=== PATIENT | female | born 1940 | race Caucasian/White ===

== ENCOUNTER → 2024-11-16 09:15 | Outpatient (REF) | payer MEDICARE, OTHER, SELFPAY | LOC: RAD 09:15 | PROVIDERS: ATTENDING PHYSICIAN Surgery Vascular Surgery; FAMILY PHYSICIAN Internal Medicine | DX: I65.22 Occlusion and stenosis of left carotid artery (principal) | CPT/HCPCS: 70496; 70498; Q9967 ==

== ENCOUNTER 2024-12-08 17:13 | Inpatient (IN) | payer MEDICARE, OTHER, SELFPAY ==
[2024-12-08 10:47] VITALS: BP 169/97
--- NOTE | 2024-12-08 10:53 | ED.CVA ---
ED Provider Triage
<Laina Leblanc PA-C - Last Filed: 12/08/24 10:55>
-
Patient seen by provider in Triage?: Seen in Triage
84-year-old female with a history of carotid stenosis scheduled for carotid endarterectomy by Dr. Yu next week presents for TIA-like symptoms yesterday for 15 minutes where she had numbness in her right hand with associated weakness and can pick
anything up. It fully resolved. This morning she spoke with someone who works with Dr. Yu who told her to come to the emergency department. Yesterday during this episode she did have a headache. She is not having a headache now. Patient has no
neurologic symptoms currently. She is on Plavix.
A medical screening examination has been initiated by a qualified medical provider. Based on the assessment performed at this time, it has been determined that an emergent medical condition may exist and the patient has been informed that further
medical evaluation and possible additional diagnostic testing may be needed.
HPI: This is a medical evaluation conducted in person to initiate diagnostic evaluation and provide initial therapeutics. Please see further documentation by the treating clinician.
GENERAL: Alert , in no apparent distress
ENT: No visible abnormalities
LUNGS: No acute respiratory distress
NEUROLOGICAL: Alert and oriented, cranial nerves intact, visual orozco intact, strength intact upper extremities briefly
SKIN: Skin intact. No visible changes.
MUSCULOSKELETAL: Moving extremities normally
PSYCH: Normal and appropriate interaction.
84-year-old female with a history of known carotid stenosis presents for TIA symptoms yesterday. They fully resolved today. She is scheduled for surgery next week. She is not having any significant neck pain. Will start with screening labs and a
Noncon head CT
History of Present Illness
<Laina Leblanc PA-C - Last Filed: 12/08/24 10:55>
General
Chief Complaint: CVA/TIA Symptoms
Time Seen by Provider: 12/08/24 15:06
<Moncia Negron DO - Last Filed: 12/08/24 20:26>
Onset of Stroke Symptoms
Onset of symptoms known: Yes
Date of onset of symptoms: 12/07/24
History of Present Illness
History of Present Illness:
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 Patient reports around 9 PM yesterday she had cramping and contracture of her right hand, lasted about 15 minutes
and is since gone away. Does still note some tingling sensation to the right hand. Reports similar symptoms to the left hand in the past, about 6 months ago at which time she was diagnosed with a stroke. Notes that she has had 3 strokes in the
past. She is due to have a carotid endarterectomy on the left with vascular surgery next week. She denies chest pain or difficulty breathing. She denies weakness to her extremities presently. Denies visual changes. Denies additional acute
medical complaints
Phy Exam
<Monica Negron DO - Last Filed: 12/08/24 20:26>
Physical Exam
Physical Exam:
General: Well-appearing, no clinical signs of dehydration, nontoxic and in no acute distress
HEENT: protecting airway
Neck: appears supple
CV: Normal heart rate, regular rhythm
Resp: No accessory muscle use, no increased work of breathing, lungs clear to auscultation bilaterally
Abd: no distension
Extremities: No deformities, no swelling
Neuro: alert, no focal neurologic deficit
: deferred
Rectal: deferred
Psych: Normal affect
Skin: Intact
Scores
<Monica Negron DO - Last Filed: 12/08/24 20:26>
NIH Stroke Score
Level of Consciousness: 0 - Alert
LOC Questions: 0-Answers both correctly
LOC Commands: 0-Performs both correctly
Best Horizontal Gaze: 0-Normal
Visual Orozco: 0=Normal, no visual loss
Facial Palsy: 0=Normal, symmetrical
Motor - Right Arm: 0=No drift 10 seconds
Motor - Left Arm: 0=No drift 10 seconds
Motor - Right Le-No drift 5 seconds
Motor - Left Le-No drift 5 seconds
Limb Ataxia: 0-Absent
Sensation: 0-Normal
Best Language: 0-No aphasia
Dysarthria: 0-Normal
Extinction and Inattention: 0-No abnormality
Total Score:: 0
Course
<Laina Leblanc PA-C - Last Filed: 12/08/24 10:55>
Orders/Labs/Results
Orders:
Orders
12/08/24 10:51
Electrocardiogram (*1) Urgent
Reason for Study: TIA/Stroke
CT Head W/o Iv Contrast Urgent
Comment:
Reason For Exam: right hand numbness yesterday for 15 mintues
12/08/24 10:52
EKG- Treatment ONCE
12/08/24 11:00
Complete Blood Count/With Diff Urgent
Comprehensive Metabolic Panel Urgent
12/08/24 14:58
CT Head & Neck Angio W/wo IV Urgent
Comment:
Reason For Exam: carotid stenosis, possible occlusion
12/08/24 16:30
Admit/Transfer Patient As Directed
Co-Sign Provider:
Level of Care: Inpatient admission
Assign to:: Telemetry
Physician / Group: Syd Raman
Diagnosis: CVA/TIA symptoms, carotid stenosis
Reason for Telemetry: CVA/TIA
Date to Stop Telemetry: 12/11/24
Time to Stop Telemetry: 11:00
Reason for Hospitalization: CVA/TIA symptoms, carotid stenosis
Expected length of stay greater than two midnights?: Yes
ELOS- Estimated Length of Stay in days: 3
I certify the patient meets the requirements for IP care: Yes
12/08/24 16:34
PRN Pain Medication Management As Directed
May give lesser potent ordered pain med per pt: Yes
preference::
Protocol:: Medication orders for pain may be administered in a
manner that supports deferring to patient preference
when the pt is:
- Requesting an ordered lesser potent pain medication.
Least to most potent pain medications are defined
as: acetaminophen < NSAID < tramadol < opioids
(morphine, oxycodone, hydromorphone).
- Requesting a lesser dose of the same medication IF
ORDERED.
- Requesting a less intrusive route of administration
if both routes are prescribed by the provider (PO <
IV).
12/08/24 16:35
Code Status As Directed
Resuscitation Status: Full Code
12/08/24 18:32
Acetaminophen [Tylenol] 650 mg PO Q4HPRN PRN
12/08/24 18:32
Case Management Consult ONCE
Case Management Consult: Discharge Planning
Comment: stroke/tia
DIETARY CONSULT Routine
Reason for Consult: stroke/TIA
NEUROLOGY CONSULT Urgent
Consulting Provider: Miguel Grayson
Was physician already notified: Yes
Helicopter Technician Urgent
Vascular Surgery Consult Routine
Consulting Provider: Jasen Ramirez III
Was physician already notified: Yes
Urinalysis Routine
Activity As Directed
Activity Level: Ambulate
NIH Stroke Scale As Directed
Directions: Per protocol
Comment: every shift and with any change in condition or mental status
Neurological Checks As Directed
Frequency: q4h
Additional Instructions:: q4h x 24h upon admission to the floor, then qshift & with any change in condition
and mental status
Pneumatic Compression Sleeves As Directed
Type: Knee high
Vital Signs As Directed
Frequency: Per unit guidelines
Ot Eval And Treat Routine
Pt Eval And Treat Routine
Activity Level: Ambulate
Speech Therapy Eval & Treat Routine
DX Deep Vein Thrombosis Video Routine
12/09/24 06:00
Type+Screen IN AM
NPO
Allow oral meds: Yes
Allow clear liquids: No
NPO with Ice Chips: No
Cardiovascular Evaluation IN AM
Erythrocyte Sed Rate IN AM
Glycohemoglobin (HgbA1c) IN AM
PTT IN AM
Prothrombin Time IN AM
Troponin I IN AM
CeFAZolin 2 GRAM [Ancef] 2 grams in 10 ml IV PRE PROCEDURE
Chlorhexidine Oral Rinse 0.12% [Peridex 0.12% Oral Rinse] 15 ml PO ONCE ONE
Mupirocin [Bactroban 2% Ointment] See Dose Instructions NASAL ONCE ONE
12/09/24 06:23
OR/Surgery Prep As Directed
Type of Prep: Clip surgical area, 2% CHG wipe pt
12/09/24 08:00
Atorvastatin [Lipitor] 80 mg PO DAILY
Cholecalciferol (Vitamin D3) [VITAMIN D3 (cholecalciferol)] 25 mcg PO DAILY
Clopidogrel Bisulfate [Plavix] 75 mg PO DAILY
Famotidine [Pepcid] 20 mg PO DAILY
Multivitamin [Theragran] 1 tablet PO DAILY
12/11/24 11:00
DC Protocol for Telemetry ONCE
Abnormal Lab Results
12/08/24
11:00
MCHC 31.2 L g/dL
(33.0-37.0)
MPV 10.9 H fL
(7.4-10.4)
Absolute Monos (auto) 1.2 H 10^3/uL
(0.1-0.6)
Monocytes % 11.3 H %
(1.7-9.3)
Carbon Dioxide 31 H mmol/L
(22-30)
BUN 25 H mg/dl
(7-17)
Creatinine 1.1 H mg/dL
(0.6-1.0)
Alkaline Phosphatase 146 H U/L
(38-126)
12/08/24 11:00
12/08/24 11:00
Vital Signs
Initial and Last Documented VS:
Initial Vital Signs
Temp Pulse Resp BP Pulse Ox
98.2 F 93 16 169/97 98
12/08/24 10:47 12/08/24 10:47 12/08/24 10:47 12/08/24 10:47 12/08/24 10:47
Last Documented Vital Signs
Temp Pulse Resp BP Pulse Ox
97.7 F 79 20 186/82 98
12/08/24 18:50 12/08/24 18:50 12/08/24 18:50 12/08/24 18:50 12/08/24 18:50
<Monica Negron DO - Last Filed: 12/08/24 20:26>
Orders/Labs/Results
Orders:
Orders
12/08/24 10:51
Electrocardiogram (*1) Urgent
Reason for Study: TIA/Stroke
CT Head W/o Iv Contrast Urgent
Comment:
Reason For Exam: right hand numbness yesterday for 15 mintues
12/08/24 10:52
EKG- Treatment ONCE
12/08/24 11:00
Complete Blood Count/With Diff Urgent
Comprehensive Metabolic Panel Urgent
12/08/24 14:58
CT Head & Neck Angio W/wo IV Urgent
Comment:
Reason For Exam: carotid stenosis, possible occlusion
12/08/24 16:30
Admit/Transfer Patient As Directed
Co-Sign Provider:
Level of Care: Inpatient admission
Assign to:: Telemetry
Physician / Group: Syd Raman
Diagnosis: CVA/TIA symptoms, carotid stenosis
Reason for Telemetry: CVA/TIA
Date to Stop Telemetry: 12/11/24
Time to Stop Telemetry: 11:00
Reason for Hospitalization: CVA/TIA symptoms, carotid stenosis
Expected length of stay greater than two midnights?: Yes
ELOS- Estimated Length of Stay in days: 3
I certify the patient meets the requirements for IP care: Yes
12/08/24 16:34
PRN Pain Medication Management As Directed
May give lesser potent ordered pain med per pt: Yes
preference::
Protocol:: Medication orders for pain may be administered in a
manner that supports deferring to patient preference
when the pt is:
- Requesting an ordered lesser potent pain medication.
Least to most potent pain medications are defined
as: acetaminophen < NSAID < tramadol < opioids
(morphine, oxycodone, hydromorphone).
- Requesting a lesser dose of the same medication IF
ORDERED.
- Requesting a less intrusive route of administration
if both routes are prescribed by the provider (PO <
IV).
12/08/24 16:35
Code Status As Directed
Resuscitation Status: Full Code
12/08/24 18:32
Acetaminophen [Tylenol] 650 mg PO Q4HPRN PRN
12/08/24 18:32
Case Management Consult ONCE
Case Management Consult: Discharge Planning
Comment: stroke/tia
DIETARY CONSULT Routine
Reason for Consult: stroke/TIA
NEUROLOGY CONSULT Urgent
Consulting Provider: Miguel Grayson
Was physician already notified: Yes
Helicopter Technician Urgent
Vascular Surgery Consult Routine
Consulting Provider: Jasen Ramirez III
Was physician already notified: Yes
Urinalysis Routine
Activity As Directed
Activity Level: Ambulate
NIH Stroke Scale As Directed
Directions: Per protocol
Comment: every shift and with any change in condition or mental status
Neurological Checks As Directed
Frequency: q4h
Additional Instructions:: q4h x 24h upon admission to the floor, then qshift & with any change in condition
and mental status
Pneumatic Compression Sleeves As Directed
Type: Knee high
Vital Signs As Directed
Frequency: Per unit guidelines
Ot Eval And Treat Routine
Pt Eval And Treat Routine
Activity Level: Ambulate
Speech Therapy Eval & Treat Routine
DX Deep Vein Thrombosis Video Routine
12/09/24 06:00
Type+Screen IN AM
NPO
Allow oral meds: Yes
Allow clear liquids: No
NPO with Ice Chips: No
Cardiovascular Evaluation IN AM
Erythrocyte Sed Rate IN AM
Glycohemoglobin (HgbA1c) IN AM
PTT IN AM
Prothrombin Time IN AM
Troponin I IN AM
CeFAZolin 2 GRAM [Ancef] 2 grams in 10 ml IV PRE PROCEDURE
Chlorhexidine Oral Rinse 0.12% [Peridex 0.12% Oral Rinse] 15 ml PO ONCE ONE
Mupirocin [Bactroban 2% Ointment] See Dose Instructions NASAL ONCE ONE
12/09/24 06:23
OR/Surgery Prep As Directed
Type of Prep: Clip surgical area, 2% CHG wipe pt
12/09/24 08:00
Atorvastatin [Lipitor] 80 mg PO DAILY
Cholecalciferol (Vitamin D3) [VITAMIN D3 (cholecalciferol)] 25 mcg PO DAILY
Clopidogrel Bisulfate [Plavix] 75 mg PO DAILY
Famotidine [Pepcid] 20 mg PO DAILY
Multivitamin [Theragran] 1 tablet PO DAILY
12/11/24 11:00
DC Protocol for Telemetry ONCE
Abnormal Lab Results
12/08/24
11:00
MCHC 31.2 L g/dL
(33.0-37.0)
MPV 10.9 H fL
(7.4-10.4)
Absolute Monos (auto) 1.2 H 10^3/uL
(0.1-0.6)
Monocytes % 11.3 H %
(1.7-9.3)
Carbon Dioxide 31 H mmol/L
(22-30)
BUN 25 H mg/dl
(7-17)
Creatinine 1.1 H mg/dL
(0.6-1.0)
Alkaline Phosphatase 146 H U/L
(38-126)
12/08/24 11:00
12/08/24 11:00
Vital Signs
Initial and Last Documented VS:
Initial Vital Signs
Temp Pulse Resp BP Pulse Ox
98.2 F 93 16 169/97 98
12/08/24 10:47 12/08/24 10:47 12/08/24 10:47 12/08/24 10:47 12/08/24 10:47
Last Documented Vital Signs
Temp Pulse Resp BP Pulse Ox
97.7 F 79 20 186/82 98
12/08/24 18:50 12/08/24 18:50 12/08/24 18:50 12/08/24 18:50 12/08/24 18:50
<Monica Negron, DO - Last Filed: 12/08/24 20:26>
MDM/Problems Addressed
MDM/Problems Addressed:
84-year-old female with history of stroke and TIA presenting for self-limited episode of cramping to her right hand. Vital signs on arrival are significant for mild hypertension.
On exam, patient is resting comfortably, no acute distress. No present focal neurologic deficits with an NIH stroke scale of 0. Ultimately suspect TIA. Patient had called vascular prior to arrival, advised her to the hospital for admission as
well as neuroconsultation. Patient did have CT brain imaging here, no acute infarct, old infarct. Will discuss management with vascular.
15:30 - In discussion with vascular, again advising admission, and would like to obtain a CT angio. Additionally noting possible carotid endarterectomy during this admission.
<Monica Negron DO - Last Filed: 12/08/24 20:26>
*Critical Care Note
Total Time (30-74mins, 75-104mins- exclusive of procedures): Not Applicable
ED Attending Note
<Laina Leblanc PA-C - Last Filed: 12/08/24 10:55>
-
Portions of this chart may have been created with voice recognition software.� Occasional wrong word or��sound alike� substitutions may have occurred due to the inherent limitations of voice recognition software.
Discharge Plan
Departure
Patient Disposition: Admit
Date of Disposition: 12/08/24
Time of Disposition: 15:39
Presentation/result/management discussed w/ accepting MD/DO: Hospitalist
Discharge Problem:
TIA (transient ischemic attack), Stroke-like symptoms
Interventions
Interventions:
*Risk Screen - Suicide Last Done: 12/08/24 10:47
*Neglect/Abuse Screening Last Done: 12/08/24 10:47
ED- Fall Risk Assessment Last Done: 12/08/24 18:42
*ED COVID-19 Vaccine History Last Done: 12/08/24 19:57
*Nursing Disposition Last Done: 12/08/24 18:42
ED- Pulmonary Assessment Last Done: 12/08/24 15:23
ED- Neurological Assessment Last Done: 12/08/24 15:23
ED- Cardiac Assessment Last Done: 12/08/24 15:23
Discharge Date and Time
Discharge Date/Time: 12/08/24 18:44
[2024-12-08 11:15] LABS: % Basophils 0.9 % (0-2); % Eosinophils 3.5 % (0-6); % Immature Granulocytes 0.4 % (0-0.5); % Lymphocytes 27.2 % (20.5-51.1); % Monocytes 11.3 % (1.7-9.3); % Neutrophils 56.7 % (42.2-75.2); Absolute Basophils 0.1 10^3/uL (0-0.2); Absolute Eosinophils 0.4 10^3/uL (0-0.7); Absolute Lymphocytes 2.9 10^3/uL (1.2-3.4); Absolute Monocytes 1.2 10^3/uL (0.1-0.6); Hematocrit 44.9 % (37.0-47.0); Mean Corp Hgb Conc. 31.2 g/dL (33.0-37.0); Mean Corpuscular Hgb 28.6 pg (27.0-31.0); Mean Corpuscular Volume 91.6 fL (81.0-99.0); Mean Platelet Volume 10.9 fL (7.4-10.4); Nucleated Red Blood Cells % 0 %; Platelet Count 239 10^3/uL (130-400); Red Cell Dist. Width 14.5 % (11.5-14.5); White Blood Cell Count 10.5 10^3/uL (4.8-10.8)
[2024-12-08 11:22] LABS: ALT (SGPT) 29 U/L (0-35); AST (SGOT) 36 U/L (14-36); Albumin 4.3 g/dl (3.5-5.0); Alkaline Phosphatase 146 U/L (38-126); Blood Urea Nitrogen 25 mg/dl (7-17); Calcium 9.6 mg/dl (8.4-10.2); Carbon Dioxide 31 mmol/L (22-30); Chloride 101 mmol/L (98-107); Glucose 95 mg/dl (70-99); Potassium 4.4 mmol/L (3.5-5.1); Sodium 140 mmol/L (135-145); Total Bilirubin 0.6 mg/dl (0.2-1.3); Total Protein 7.2 g/dl (6.3-8.2); eGFR 50.17
[2024-12-08 12:42] VITALS: BP 147/78
--- NOTE | 2024-12-08 14:49 | CON.VAS ---
Addendum entered and electronically signed by Jasen Ramirez III, MD 12/09/24 10:57:
Patient seen and examined with Domi HARMON
I agree with the H/P/A/P
Right hand and leg symptoms at home
Known high grade LICA stenosis with soft plaque
Currently back to baseline
CTA personally reviewed. Critical stenosis of L ICA with soft plaque
This likely represents symptomatic L ICA stenosis.
TIA
My recommendation is for CEA on this admission.
Patient is in agreement with plan
[id number]
Original Note:
Consultation
Consultation Request
Performing Provider: James
Reason for Consultation: Carotid stenosis
Medical History
-
Chief Complaint: Right hand numbness/weakness-resolved
History of Present Illness:
82-year-old female with history of carotid stenosis scheduled for CEA with Dr. Yu on 12/14/2024. Surgery was initially scheduled sooner but patient had come down with COVID and was rescheduled.
Patient presented to the ER today by referral from the vascular office. Patient called the office this morning to relay that she had had 15 minutes of right hand weakness and numbness last evening around 9 PM. Patient also reports intermittently
throughout the day yesterday she had had right leg weakness. She has no symptoms at this time. Patient seen at bedside in the ER with Dr. Ramirez.
Other past medical history hyperlipidemia, stroke, hypercholesterolemia, hypertension, and arthritis.
Past Medical History
Past Medical History: Other (Hyperlipidemia, stroke, hypercholesterolemia, carotid stenosis, hypertension, arthritis)
Past Surgical History: Other (Cervical fusion, laminectomy, loop recorder)
Social History
Tobacco: Former Smoker
Family History
Family History: Reviewed & Not Pertinent
Allergies / Home Medications
Allergy/AdvReac Type Severity Reaction Status Date / Time
pseudoephedrine HCl Allergy Swelling Verified 12/08/24 10:50
[From Art]
�Medication �Instructions �Recorded �Confirmed �Type
atorvastatin 80 mg tablet 80 mg PO DAILY 11/18/24 12/06/24 History
cholecalciferol (vitamin D3) 25 25 mcg PO DAILY 11/18/24 12/06/24 History
mcg (1,000 unit) capsule (Vitamin
D3)
clopidogrel 75 mg tablet (Plavix) 75 mg PO DAILY 11/18/24 12/06/24 History
famotidine 20 mg tablet (Pepcid) 20 mg PO DAILY 11/18/24 12/06/24 History
multivitamin 1 tab PO DAILY 11/18/24 12/06/24 History
Review of Systems
-
History Source: Patient
All other systems: Negative unless noted
Constitutional: Reports No Symptoms
EENT: Reports No Symptoms
Respiratory: Reports No Symptoms
Cardiac: Reports No Symptoms
Vascular: Denies Leg Pain / Claudication
Abdomen/GI: Reports No Symptoms
: Reports No Symptoms
Musculoskeletal: Reports No Symptoms
Skin: Reports No Symptoms
Neurological: Reports Weakness (Resolved)
Physical Exam
Vital Signs
Temp Pulse Resp BP Pulse Ox
98.2 F 83 16 147/78 98
12/08/24 10:47 12/08/24 12:42 12/08/24 12:42 12/08/24 12:42 12/08/24 12:42
Lab Results
12/08/24 11:00
12/08/24 11:00
Physical Exam
General: No Apparent Distress
HEENT: Normocephalic and Atraumatic
Respiratory: Non Labored Respirations
Cardiac: JVD
GI: Soft, Non Tender and Non Distended
Musculoskeletal: No Clubbing and No Cyanosis
Skin: Warm
Neuro: Awake, Alert, Oriented and No Motor Deficits
Psych: Calm
Assessment / Plan
-
84-year-old female here with TIA symptoms for 15 minutes yesterday
Called vascular office today and was referred to the emergency room.
Patient has known carotid stenosis and was scheduled for CEA next week
Plan:
-CTA head and neck
-Recommend neurology consult
-Admit to hospitalist
-Tentatively adding patient to the OR schedule for tomorrow for left CEA
-Will follow-up with patient after scan complete
Data Reviewed
-
Labs: Labs Reviewed by me
[2024-12-08 15:07] VITALS: BMI 29.1
--- NOTE | 2024-12-08 15:44 | HPS.HSE ---
Addendum entered and electronically signed by Syd Raman MD 12/08/24 17:47:
Intermittent right hand and leg weakness that began last night. Has a known history of carotid stenosis and was scheduled for CEA. At this point we will obtain a CT angio head and neck. Have neurology and vascular surgery evaluate. Obtain lipid
profile A1c. Additionally has VISH for CKD stage II. Unknown baseline. Will obtain/follow-up renal function test tomorrow a.m. Gently IV hydrate.
Original Note:
Family Physician
-
Family Physician: Tony Herring
Chief Complaint
-
CVA/TIA symptoms
History of Present Illness
Patient is a 84-year-old female with past medical history significant for hyperlipidemia, hypertension, carotid stenosis and Hx CVA/TIA who presented to [facility] ED for evaluation of right hand discomfort last night and right leg weakness
over past 4 days. Patient states last night she had an episode in right hand, that she described as 'froze up,' and resolved spontaneously. She also states over past 4 days she has noticed some intermittent weakness in right leg and has had
intermittent headaches. She reports the headaches have been ongoing intermittently and she was told to expect that she may have them. Patient also reports recent Covid infection and cleared 12 days ago. Denies any dizziness, visual changes,
confusion, facial droop, or slurred words. She has known carotid occlusions, follows with Dr. Yu and is scheduled for left carotid endarterectomy next week. Patient called Dr. Yu office this morning to report incident with right hand last night,
and nurse instructed her to go to ED for evaluation.
Medical History
Past Medical History
Past Medical History: Reports Other
Additional Past Medical History:
hyperlipidemia
hypertension
carotid stenosis
Hx CVA/TIA
Past Surgical History: Reports Other
Additional Past Surgical History:
medtronic subcutaneous implantable loop recorder in situ (09/01/2024)
anterior cervical fusion- ([place] 10/14/2023)
anterior cervical fusion- ([place] 2017)
lumbar laminectomy- ( 2006)
carpal tunnel
breast reduction
tubal ligation
colonoscopy (multiple)
orthopedic to left ankle
Social History
Tobacco: Former Smoker (quit in 1986, has approximately 35 pack year history )
Alcohol: Occasional
Drug: None
Personal:
Living: Alone
Employment: Retired
Family History
Family History: Other (Mother: unknown; Father: colon cancer )
Allergies / Home Medications
Allergies reflects when Allergies were last updated in [employer].
Home Medications with original date entered in [employer]
Allergy/Medication List:
Allergies
Allergy/AdvReac Type Severity Reaction Status Date / Time
pseudoephedrine HCl Allergy Swelling Verified 12/08/24 10:50
[From [facility]]
Home Medications
atorvastatin 80 mg tablet 80 mg PO DAILY 11/18/24
cholecalciferol (vitamin D3) 25 mcg (1,000 unit) capsule (Vitamin D3) 25 mcg PO DAILY 11/18/24
clopidogrel 75 mg tablet (Plavix) 75 mg PO DAILY 11/18/24
famotidine 20 mg tablet (Pepcid) 20 mg PO DAILY 11/18/24
multivitamin 1 tab PO DAILY 11/18/24
Review of Systems
-
History Source: Patient
Constitutional: Reports No Symptoms
EENT: Reports No Symptoms
Respiratory: Reports No Symptoms
Cardiac: Reports No Symptoms
Abdomen/GI: Reports No Symptoms
: Reports No Symptoms
Musculoskeletal: Reports No Symptoms
Skin: Reports No Symptoms
Neurological: Reports Headache, Weakness (right leg) and Other (right hand cramping)
Endocrine: Reports No Symptoms
Hematologic/Lymphatic: Reports No Symptoms
Psych: Reports No Symptoms
Physical Exam
Vital Signs
Vital Signs
Temp Pulse Resp BP Pulse Ox
98.2 F 83 16 147/78 98
12/08/24 10:47 12/08/24 12:42 12/08/24 12:42 12/08/24 12:42 12/08/24 12:42
Physical Exam
General: Well Developed, Well Nourished, No Apparent Distress, Comfortable and Conversant
HEENT: NormoCephalic, Moist mucous membranes, Atraumatic, PERRLA, [place] Conjunctivae, Nose Appears Normal and Ears Appear Normal
Respiratory: Clear and Non Labored Respirations
Cardiac: S1/S2 and Regular Rhythm; No Murmur, Rub or Gallop
Breast: Deferred by me
GI: Soft, Non Tender, Non Distended and Normal Bowel Sounds; No Organomegaly
Rectal: Deferred by Provider
Genito-urinary: Deferred by me
Musculoskeletal: No Clubbing, No Cyanosis and No Edema
Skin: Warm and IV/Catheter Site; No Rash
Neuro: Awake, Alert, AO x 3, No Motor Deficits, Nonfocal/grossly intact, Cranial Nerves Intact and No Sensory Deficits
Psych: Calm and Intact Judgment/Insight
Laboratory Results
-
12/08/24 11:00
12/08/24 11:00
Laboratory Results
Total Bilirubin 0.6 mg/dl (0.2-1.3) 12/08/24 11:00
AST 36 U/L (14-36) 12/08/24 11:00
ALT 29 U/L (0-35) 12/08/24 11:00
Alkaline Phosphatase 146 U/L (38-126) H 12/08/24 11:00
Data Reviewed
-
CT Scan: Report Reviewed by me (Head: Small area of decreased attenuation again seen compatible with an old infarct in the posterior left parietal lobe. No acute intracranial abnormality.)
Lab Data: Labs Reviewed by me (BUN 25, Creat 1.1)
Impression/Plan
-
IMPRESSION/PLAN:
#CVA/TIA symptoms
Head CT: Small area of decreased attenuation again seen compatible with an old infarct in the posterior left parietal lobe.
No acute intracranial abnormality.
known carotid occlusions, follow with Dr. Yu and is scheduled for left carotid endarterectomy next week
- Admit to telemetry
- Consult Neurology
- Consult Vascular Surgery
- Head/Neck CT Angio pending
- NPO for surgery tomorrow
#VISH
BUN 25, Creat 1.1
- monitor BMP
#Hx CVA/TIA
- continue clopidogrel and atorvastatin
#hyperlipidemia
- continue atorvastatin
#carotid stenosis
scheduled for carotid endarterectomy by Dr. Yu on 12/14/2024
#GERD
- continue famotidine
#hypertension
Code status: full code
DVT prophylaxis: SCDs
[2024-12-08 18:50] VITALS: BP 186/82
[2024-12-08 20:48] LABS: Urine Albumin 1+ (Neg - Trace); Urine Bilirubin Negative (Negative); Urine Character Clear (Clear); Urine Color Yellow; Urine Glucose Negative (Negative); Urine Ketone Negative (Negative); Urine Leukocyte 1+ (Negative); Urine Nitrite Negative (Negative); Urine Occult Blood Negative (Negative); Urine Urobilinogen Negative (Neg - 1+)
[2024-12-08 21:51] LABS: Urine Bacteria Few (Negative); Urine Red Blood Cell 0-2 /HPF (0-2); Urine Squamous Cell >30 /LPF (Few); Urine White Cell 21-25 /HPF (0-5)
[2024-12-08 23:13] VITALS: BP 155/68
[2024-12-09] VITALS (17 sets, daily range): BP systolic 93–171; BP diastolic 43–92
[2024-12-09 06:23] LABS: Troponin I < 0.012 ng/ml
[2024-12-09 06:33] LABS: INR 0.97; PT 13.4 Sec (11.4-14.6)
[2024-12-09 06:34] LABS: APTT 26.7 Sec (23.4-35.0)
[2024-12-09 07:25] LABS: HDL Cholesterol 42 mg/dl; LDL Cholesterol, Calculated 86 mg/dl; Total Cholesterol 162 mg/dl (50-199); Triglyceride 172 mg/dl (10-149); Very Low Density Lipoprotein 34 mg/dl (0-30)
[2024-12-09 07:37] LABS: Erythrocyte Sed Rate 11 mm/hour (0-20)
[2024-12-09] MEDS: PLAVIX 75 MG PO (09:09)
[2024-12-09] MEDS: LIPITOR 80 MG PO (09:10)
[2024-12-09] MEDS: VITAMIN D3 (cholecalciferol) 25 MCG PO (09:10)
[2024-12-09] MEDS: THERAGRAN 1 TABLET PO (09:10)
[2024-12-09] MEDS: PEPCID 20 MG PO (09:10)
[2024-12-09 09:29] LABS: Blood Urea Nitrogen 21 mg/dl (7-17); Calcium 9.9 mg/dl (8.4-10.2); Carbon Dioxide 24 mmol/L (22-30); Chloride 103 mmol/L (98-107); Estimated Creatinine Clearance 47 ml/min; Glucose 99 mg/dl (70-99); Potassium 4.7 mmol/L (3.5-5.1); Sodium 139 mmol/L (135-145); eGFR 56.25
--- NOTE | 2024-12-09 09:44 | W.PN.HOSP.TC ---
Today's Communication/Plan
-
Assessment / Plan
Assessment / Plan
NAD
Scleral Anicteric
MMM
No JVD
CTABL
RRR, S1/S2
Soft, NT, ND, BS+
Warm, Dry
AAOx3
Calm
TIA with resolution of the right upper extremity and right lower extremity weakness
-Known history of carotid stenosis, confirmed on CT angio.
-Vascular surgery planning on taking to the OR for carotid endarterectomy with James later today in the afternoon
-Neurology to evaluate
-Maintain n.p.o.
-IV fluids
-Postoperatively will require DAPT high intensity statin
Carotid stenosis -symptomatic
-CEA later today with vascular surgery
-Maintain n.p.o.
-IV fluids
-Postoperative required DAPT and high intensity statin
VISH
-Unknown baseline
-Start IV fluids gentle IV hydration
History of CVA/TIA
Continue Plavix and Lipitor likely will require ASA postoperatively
Neurology evaluation
GERD
Continue Pepcid
Anticipated Discharge: 24 - 48 hours
Subjective/Interval History
-
Date of Service: December 09, 2024
seen and examined.
awaiting or with vascular surgery
mo acute complaitns
Objective Data
-
Labs:
Laboratory Results
12/09/24 12/09/24
05:35 08:52
WBC Pending Cancelled
Hgb Pending Cancelled
Hct Pending Cancelled
Plt Count Pending Cancelled
PT 13.4
INR 0.97
APTT 26.7
Sodium 139 Cancelled
Potassium 4.7 Cancelled
Chloride 103 Cancelled
Carbon Dioxide 24 Cancelled
BUN 21 H Cancelled
Creatinine 1.0 Cancelled
Glucose 99 Cancelled
Calcium 9.9 Cancelled
Vital Signs:
Vital Signs
Temp Pulse Resp BP Pulse Ox
97.6 F 72 22 171/78 98
12/09/24 07:30 12/09/24 07:30 12/09/24 07:30 12/09/24 07:30 12/09/24 07:30
I&O
12/08/24 12/09/24 12/10/24
06:59 06:59 06:59
Intake Total 120 / 120
Balance 120 / 120
[2024-12-09 09:50] LABS: Glycohemoglobin (HgbA1c) 5.8 % (4.0-5.6)
[2024-12-09] MEDS: D5/0.45%NACL 1000 IV (11:09)
--- NOTE | 2024-12-09 11:49 | CM ---
CM reviewed chart, patient seen bedside with daughter, Magdalene (POA), and son in law. Patient lives in a CCRC, in independent living in [facility], has a walker and cane at home, receives PT in house through [facility], has been to [facility]. Patient confirms PCP Tony Herring, pharmacy [facility] in [place], delivers to apartment. PT/OT consulted, will watch for VN needs. CM will continue to follow for all discharge planning needs.
Plan; home to [facility] ([facility]) watch for VN needs
[2024-12-09 12:06] LABS: % Eosinophils 4.7 % (0-6); % Immature Granulocytes 0.2 % (0-0.5); % Lymphocytes 29.6 % (20.5-51.1); % Monocytes 11.5 % (1.7-9.3); Absolute Basophils 0.1 10^3/uL (0-0.2); Absolute Eosinophils 0.4 10^3/uL (0-0.7); Absolute Lymphocytes 2.4 10^3/uL (1.2-3.4); Absolute Neutrophils 4.4 10^3/uL (1.4-6.5); Hematocrit 44.6 % (37.0-47.0); Hemoglobin 14.2 g/dL (12.0-16.0); Mean Corp Hgb Conc. 31.8 g/dL (33.0-37.0); Mean Corpuscular Hgb 29.5 pg (27.0-31.0); Mean Corpuscular Volume 92.7 fL (81.0-99.0); Mean Platelet Volume 11.6 fL (7.4-10.4); Nucleated Red Blood Cells % 0 %; Platelet Count 226 10^3/uL (130-400); Red Blood Cell Count 4.81 10^6/uL (4.20-5.40); Red Cell Dist. Width 14.6 % (11.5-14.5); White Blood Cell Count 8.3 10^3/uL (4.8-10.8)
--- NOTE | 2024-12-09 12:14 | W.PN.UPDATE ---
Update Note
Progress Note Update
I met with patient and family at bedside
Explained results of CT angiogram that I personally reviewed
My recommendation again is for carotid endarterectomy. We will plan to do this today.
The technical aspects of this procedure were discussed with her and her family in detail. The benefits and rationale for this approach were discussed with them in detail. Operative risks were discussed with them in detail including but not limited
to stroke, , heart attack, bleeding, cranial nerve injury, wound healing complications. We discussed the anticipated postoperative recovery, both inpatient and outpatient. We also discussed the importance of aggressive medical management for
her arterial disease risk factors and lifelong imaging surveillance follow-up.
She and her family expressed a clear understanding of our conversation and agreed to proceed with surgery as detailed above.
Jasen Ramirez III, MD
[facility] Vascular Surgery
[phone] (cell)
--- NOTE | 2024-12-09 12:15 | W.SUR.PREOP ---
Pre-Operative Surgical Note
-
I have examined this patient prior to the performance of the scheduled procedure.
The patient's condition is unchanged from the time of the current History and
Physical and the patient is able to undergo the scheduled procedure.
[2024-12-09] MEDS: BACTROBAN 2% OINTMENT 1 APPLIC NASAL (13:03)
[2024-12-09] MEDS: PERIDEX 0.12% ORAL RINSE 15 ML PO (13:03)
--- NOTE | 2024-12-09 13:40 | PTCARENOTE ---
Received pt via bed from [facility]@ 1330. Pt AAO x3, mild facial droop noted, right hand grasp weaker than left, bilat plantar/dorsal flexion equal, c/o persistent frontal headache, monitor showing NSR, temp 98.4, HR 90, RR 20, BP 149/94, O2 sat 99% on
RA, lung sounds clear bilat, #20P in RAC WNL with IV fluids infusing, Dr Ramirez at bedside to consent pt, Dr Marques at bedside to see pt, hand off report given to Gaye MCCARTY and Ericka MCCARTY, pt transferred to vascular OR at 1340
--- NOTE | 2024-12-09 13:47 | PTOTSP ---
SPEECH THERAPY COGNITIVE COMMUNICATION/SPEECH/LANGUAGE EVALUATION:
Patient exhibits mild cognitive-communication impairments characterized by difficulty in the following areas: STM, executive functioning skills, visuospatial skills, abstraction. MOCA version 8.1 was administered. Patient achieved a score of 22/30,
indicating slightly below normal level (greater than or equal to 26/30). Subscores as follows: Visuospatial/Executive functionin/5. Namin/3. Attention: 5/6. Language: 3/3. Abstraction: 0/2. Delayed Recall: 2/5. Orientation: 6/6. Impairments
likely related to suspected acute CVA and known chronic CVA. Patient with history of CVA in 05/2024, and reporting current cognitive status is worse than baseline (s/p prior CVA) at this time. Recommend ST services to follow at the acute care level;
Consider ongoing ST services upon discharge. ST to follow for swallow evaluation once cleared following CEA later today.
[2024-12-09 14:53] LABS: ACT-LR - POC 302 Seconds (116-155)
[2024-12-09 15:30] LABS: ACT-LR - POC 253 Seconds (116-155)
--- NOTE | 2024-12-09 15:50 | OR.RPT ---
Operative Report
Operative Report
Date of Operation: 12/09/2024
Pre Op Diagnosis: Symptomatic left carotid stenosis
Post Op Diagnosis: Symptomatic left carotid stenosis
Procedure: LEFT carotid endarterectomy with patch angioplasty using bovine pericardium
Surgeon: Jasen Ramirez III, MD
Moth Exterminator: Abdiel Antonio MD PGY1
Anesthesia: General
Complications: None
History and Indications for Procedure: 84-year-old female with symptomatic left carotid stenosis
Procedure in Detail: Sandra Xiao was correctly identified and placed supine on the operating table. After adequate induction of anesthesia the left neck was positioned, prepped and draped in the usual sterile fashion. Preoperative antibiotics
were administered. A timeout procedure was performed with the nursing and anesthesia staff confirming the patients identity as well as the nature and laterality of the procedure.
The carotid bifurcation was marked with ultrasound at the beginning of the case. The incision was planned accordingly. An incision was made along the anterior border of the left sternocleidomastoid muscle. Electrocautery was used to divide the
subcutaneous tissue and platysma. The carotid sheath was entered with sharp dissection. The internal jugular vein was retracted laterally. The vagus nerve was identified and protected throughout the case. The common carotid artery was identified at
the base of this incision and carefully encircled with a vessel loop. The patient was systemically heparinized. The dissection was continued distally towards the carotid bifurcation. The facial vein was skeletonized, ligated and divided between ties
and clips. The proximal external carotid artery was encircled with a vessel loop. The distal internal carotid artery was encircled with a vessel loop at a soft spot on the artery beyond the plaque. The hypoglossal nerve was identified and protected.
The internal vessel loop was secured followed by the common and external. An arteriotomy was made on the distal common carotid artery with an 11-blade. This was extended proximally and distally with Mcdaniel scissors. The arteriotomy was extended
distally through the plaque to an area of normal appearing internal carotid artery. The distal vessel loop was replaced with a short tip hockey-stick type vascular clamp. An endarterectomy was performed with a [place] elevator in the standard
fashion. The proximal extent of the plaque was transected with scissors. The distal end of the plaque in the internal carotid artery was feathered. No distal intimal flap was identified. The plaque extending into the external carotid artery was
everted. Once the plaque was fully removed the endarterectomy plane was irrigated with heparinized saline and any loose fronds of tissue were removed. A pre-cut piece of bovine pericardium was sewn in place using a running 6-0 Prolene suture. Prior
to the completion of the patch the common carotid was allowed to forward bleed and the external was allowed to back bleed. The area under the patch was irrigated with heparinized saline to remove any potential thrombus or debris. The anastomosis was
completed.
The external vessel loop was released first, followed by the common and then the internal. There was an excellent pulse in the distal internal carotid artery. An excellent quality Doppler signal in the distal internal carotid artery was also
confirmed. The patch suture line was closely inspected for hemostasis and was achieved. Protamine was administered. Hemostasis was achieved in the wound bed. The wound was irrigated with saline solution.
The wound was then closed in layers. Sterile skin glue was applied. The patient awoke from anesthesia with no immediate neuro deficits and was taken to the PACU in stable condition.
Attestation: I was present and responsible for the entire procedure
Signed:
Jasen Ramirez III, MD
[facility] Vascular Surgery
[phone] (nfzf)
--- NOTE | 2024-12-09 16:11 | W.IMMPOSTOP ---
Surgical Immed Post Op Note
-
Primary Surgeon: James
Assisting Surgeon: Marisela
Pre-op Diagnosis: L carotid stenosis
Post-op Diagnosis: L carotid stenosis
Procedure Performed: L CEA
Anesthesia Type: Sedation/local
Specimen / Cultures: None
Estimated Blood Loss: 25 cc
Complications: None
Operative Findings: L carotid stenosis, L CEA performed
[2024-12-09] MEDS: SUBLIMAZE 25 MCG IV ×2 (16:35→16:50)
[2024-12-09 16:43] LABS: Hematocrit 38.8 % (37.0-47.0); Hemoglobin 12.7 g/dL (12.0-16.0); Mean Corp Hgb Conc. 32.7 g/dL (33.0-37.0); Mean Corpuscular Hgb 29.3 pg (27.0-31.0); Mean Corpuscular Volume 89.4 fL (81.0-99.0); Mean Platelet Volume 11.3 fL (7.4-10.4); Platelet Count 199 10^3/uL (130-400); Red Blood Cell Count 4.34 10^6/uL (4.20-5.40); Red Cell Dist. Width 14.3 % (11.5-14.5); White Blood Cell Count 12.1 10^3/uL (4.8-10.8)
[2024-12-09 16:54] LABS: APTT 28.1 Sec (23.4-35.0); INR 1.14
[2024-12-09 17:00] LABS: Blood Urea Nitrogen 18 mg/dl (7-17); Calcium 8.6 mg/dl (8.4-10.2); Carbon Dioxide 25 mmol/L (22-30); Chloride 102 mmol/L (98-107); Estimated Creatinine Clearance 52 ml/min; Glucose 128 mg/dl (70-99); Potassium 4.1 mmol/L (3.5-5.1); Sodium 135 mmol/L (135-145); eGFR > 60.00
--- NOTE | 2024-12-09 18:03 | PTCARENOTE ---
Received patient from PACU, patient has ice pack on left side of neck, AAOx4, NIHSS completed. Neuro checks unchanged. Patient's daughter at bedside. Patient is on 2L nasal cannula, 99%. She is in a sinus rhythm, right wrist radial a -line
pressure is reading higher than cuff pressure. Patient is written for clear liquid diet and due to void. Left neck incision is approximated and swollen, ice pack applied, will review orders.
[2024-12-09] MEDS: NSS 1000 IV (18:10)
[2024-12-09] MEDS: TYLENOL 650 MG PO (19:48)
[2024-12-09] MEDS: ROXICODONE 5 MG PO (19:49)
[2024-12-09] MEDS: D5/0.45%NACL IV (23:14)
--- NOTE | 2024-12-09 23:52 | PTCARENOTE ---
Pt received at 19:00, change of shift neuro assessment completed with previous RN. Neuro assessment WNL. Good strength in all 4 extremeties, GCS = 15. NIH = 0. C/O 5/10 L neck and pain behind L ear/eyebrow, unchanged. Given PRN oxycodone and
tylenol as ordered, pain improved to 1/10. Ice pack as ordered. L neck incision well approximated. R radial a-line zeroed and transduced. Safe environment maintained, call cast within reach.
[2024-12-10] MEDS: ROXICODONE 5 MG PO ×2 (00:10→07:42)
[2024-12-10 04:08] LABS: Hematocrit 39.2 % (37.0-47.0); Hemoglobin 12.8 g/dL (12.0-16.0); Mean Corp Hgb Conc. 32.7 g/dL (33.0-37.0); Mean Corpuscular Hgb 29.4 pg (27.0-31.0); Mean Corpuscular Volume 90.1 fL (81.0-99.0); Mean Platelet Volume 11.5 fL (7.4-10.4); Platelet Count 201 10^3/uL (130-400); Red Blood Cell Count 4.35 10^6/uL (4.20-5.40); Red Cell Dist. Width 14.3 % (11.5-14.5); White Blood Cell Count 12.2 10^3/uL (4.8-10.8)
[2024-12-10 04:26] LABS: INR 1.04; PT 13.9 Sec (11.4-14.6)
[2024-12-10 04:27] LABS: APTT 25.7 Sec (23.4-35.0)
[2024-12-10 04:35] LABS: Blood Urea Nitrogen 20 mg/dl (7-17); Carbon Dioxide 25 mmol/L (22-30); Chloride 102 mmol/L (98-107); Estimated Creatinine Clearance 52 ml/min; Glucose 152 mg/dl (70-99); Potassium 4.7 mmol/L (3.5-5.1); Sodium 136 mmol/L (135-145); eGFR > 60.00
[2024-12-10 06:00] VITALS: BMI 29.7
[2024-12-10] MEDS: NSS 1000 IV (06:25)
[2024-12-10] MEDS: VITAMIN D3 (cholecalciferol) 25 MCG PO (07:42)
[2024-12-10] MEDS: PEPCID 20 MG PO (07:42)
[2024-12-10] MEDS: THERAGRAN 1 TABLET PO (07:42)
[2024-12-10] MEDS: PLAVIX 75 MG PO (07:42)
[2024-12-10] MEDS: LOW STRENGTH ASPIRIN 81 MG PO (07:42)
[2024-12-10] MEDS: LIPITOR 80 MG PO (07:42)
--- NOTE | 2024-12-10 07:45 | PTCARENOTE ---
0700 assumed care. pt in bed. AAO x3. Left neck pain secondary to recent CEA 02/18.
Neuro check no abnormalities noted. SR 74 no edema pedal pulses palatable. RT radial A/line Zero positional properly; BP 130/52 SB 58 To SR 30; RR 9; 97%RA Left neck incision intact PAPER BALER. soft to touch. Voiding with no difficulties
Will advance diet to low cholesterol per order
--- NOTE | 2024-12-10 08:27 | CON.INTV ---
Consultation
Consultation Request
Date/Time Consultation Requested: 12/09/2024 - 1531
Date/Time Consultation Performed: 12/10/2024 - 819
Requesting Provider: FAUSTINO Manrique
Performing Provider: Dr. Dean
Reason for Consultation: s/p L-CEA
Medical History
-
Chief Complaint: Right hand discomfort + right leg weakness x 4 days
History of Present Illness:
84-year-old female former tobacco smoker with a past medical history of carotid artery stenosis, hypertension, history of cardioembolic stroke, hyperlipidemia, arthritis, familial adenomatous polyposis and history of hemorrhoids who presents with
right finger numbness. Symptoms lasted about 15 minutes where she could not pick anything up and she was told by vascular surgery to go to the hospital for possible stroke/TIA. She also had right leg weakness over the last 4 days. Her right hand
symptoms resolved spontaneously. She also has been getting intermittent headaches in the back of her head. She does not have a history of migraines. She did have COVID-19 that cleared about 12 days ago. Of note she did have a carotid surgery
scheduled for 12/14/[address] Yu who she saw in the office on 11/11/2024. During that office visit she did endorse stroke/TIA symptoms a few times over the last few months, initially began in May 2024. It usually affects her right hand. She
was going to be getting a left carotid endarterectomy next week. Initial vitals showed she was hypertensive to 169/97, respiratory rate 16, pulse rate 93, SpO2 98% on room air and she was afebrile to 98.2 �F. Labs had nothing that was pertinently
significant. Initial CT head on 12/08/2024 showed an old infarct in the posterior left parietal lobe with no acute intracranial abnormality. CTA head/neck on 12/08/2024 showed short segment occlusion of the left carotid bulb which appeared unchanged
compared to a recent CTA head/neck from 11/16/2024. Also stable 30% stenosis of the right carotid bulb. Given her symptomatic left carotid artery stenosis, she underwent a left carotid endarterectomy with patch angioplasty using bovine pericardium
on 12/09/2024, and was transferred to the ICU postoperatively with Director Of Restaurant Operations services consulted for additional management/recommendations.
Patient was seen and evaluated this morning. Of note patient did not arrive to the ICU from the PACU till after 6 PM on 12/09/2024. Today she feels well, denying weakness in any of her extremities and no numbness or tingling. She still has a
headache in the back of her head. This headache has been ongoing for few days now. She denies nausea/vomiting/shortness of breath/chest pain/fevers or chills. Heart rate 64, BP 141/67 and saturating 94% on room air.
PMHx: Hyperlipidemia, history of cardioembolic stroke, history of exertional dyspnea, carotid artery stenosis, hypertension, familial adenomatous polyposis, arthritis, history of hemorrhoids
PSHx: [employer] subcutaneous implantable loop recorder in situ (09/01/2024), anterior cervical fusion, lumbar laminectomy
Past Medical History
Past Medical History: Other (Above as per HPI)
Past Surgical History: Other (Above as per HPI)
Social History
Tobacco: Former Smoker (Quit 1986, approximate 50-[id number] history)
Alcohol: Occasional
Drug: None
Personal:
Living: Alone
Employment: Retired
Family History
Family History: Reviewed & Not Pertinent and Cancer (Father: Colon cancer)
Allergies / Home Medications
Allergies
Allergy/AdvReac Type Severity Reaction Status Date / Time
pseudoephedrine HCl Allergy Swelling Verified 12/08/24 10:50
[From [facility]]
Home Medications
�Medication �Instructions �Recorded �Confirmed �Last Taken �Type
atorvastatin 80 mg tablet 80 mg PO DAILY High Cholesterol 11/18/24 12/08/24 12/08/24 History
cholecalciferol (vitamin D3) 25 25 mcg PO DAILY Supplement 11/18/24 12/08/24 12/08/24 History
mcg (1,000 unit) capsule (Vitamin
D3)
clopidogrel 75 mg tablet (Plavix) 75 mg PO DAILY Blood Clot 11/18/24 12/08/24 12/08/24 History
Prevention/Tx
famotidine 20 mg tablet (Pepcid) 20 mg PO DAILY Gastrointestinal 11/18/24 12/08/24 12/08/24 History
Issue
multivitamin 1 tab PO DAILY Supplement 11/18/24 12/08/24 12/08/24 History
Review of Systems
-
History Source: Patient
All other systems: Negative unless noted
Vitals / Labs / Diagnostic Testing
Vital Signs
Temp Pulse Resp BP Pulse Ox
97.5 F 60 6 93/44 91
12/10/24 07:39 12/10/24 08:00 12/10/24 08:00 12/09/24 20:00 12/10/24 08:00
Lab Data
12/10/24 04:00
12/10/24 04:00
Laboratory Results
12/09/24 12/10/24
16:26 04:00
PT 15.0 H 13.9
INR 1.14 1.04
APTT 28.1 25.7
Microbiology
12/08/24 20:36 Nose MRSA Screen - Final
No Methicillin Resistant Staphylococcus aureus isolated.
Diagnostic Testing:
Physical Exam
-
HEENT: Normocephalic and Anicteric
Cardiovascular: S1/S2 and Peripheral Edema (negative)
Respiratory: Wheeze (negative), Rales (Bibasilar), Rhonchi (negative) and Non-Labored Respirations
GI: Soft, Non Distended, Non Tender and Normal Bowel Sounds
Neurology: AO x 3 and Tremors (Mild tremor in right hand during exertion)
Skin: Warm and Dry
General: Respiratory Distress (negative), Comfortable, Fever (negative) and Chills (negative)
Assessment
-
Assessment: 84-year-old female former tobacco smoker with a past medical history of carotid artery stenosis, hypertension, history of cardioembolic stroke, hyperlipidemia, arthritis, familial adenomatous polyposis and history of hemorrhoids who
presents with right finger numbness. Symptoms lasted about 15 minutes where she could not pick anything up and she was told by vascular surgery to go to the hospital for possible stroke/TIA. She also had right leg weakness over the last 4 days.
Her right hand symptoms resolved spontaneously. She also has been getting intermittent headaches in the back of her head. She does not have a history of migraines. She did have COVID-19 that cleared about 12 days ago. Of note she did have a
carotid surgery scheduled for 12/14/[address] Yu who she saw in the office on 11/11/2024. During that office visit she did endorse stroke/TIA symptoms a few times over the last few months, initially began in May 2024. It usually affects her
right hand. She was going to be getting a left carotid endarterectomy next week. Initial CT head on 12/08/2024 showed an old infarct in the posterior left parietal lobe with no acute intracranial abnormality. CTA head/neck on 12/08/2024 showed
short segment occlusion of the left carotid bulb which appeared unchanged compared to a recent CTA head/neck from 11/16/2024. Also stable 30% stenosis of the right carotid bulb. Given her symptomatic left carotid artery stenosis, she underwent a
left carotid endarterectomy with patch angioplasty using bovine pericardium on 12/09/2024, and was transferred to the ICU postoperatively with Director Of Restaurant Operations services consulted for additional management/recommendations.
Chronic conditions BIOENGINEER: Hyperlipidemia, history of cardioembolic stroke, history of exertional dyspnea, carotid artery stenosis, hypertension, familial adenomatous polyposis, arthritis, history of hemorrhoids
Impression:
#Symptomatic left carotid artery stenosis s/p left carotid endarterectomy with patch angioplasty using bovine pericardium (POD #1)
#Former tobacco smoker (Quit 1986, approximate 27-avpw-dwut history)
#History of cardioembolic stroke
#Hypertension
#Familial adenomatous polyposis
#History of hemorrhoids
Plan:
Postoperative surgical intensive care unit monitoring
Outpatient follow-up with vascular surgery
She did have a CT head repeated today showing no acute intracranial abnormalities. Neurology also consulted and recs appreciated
Supplemental oxygen as needed to maintain SpO2 >90-94%
prn nebulized bronchodilators
Incentive spirometry encouraged 10x per hour for at least 4 hrs a day
Aspiration precautions
Pain control
Neuro and vascular checks per protocol
Maintain MAP>65
Replete electrolytes with K>4, Mg>2
Maintain euglycemia with goal BG 140-180
Vascular surgery following-correspondence and operative notes reviewed
Transfuse blood products as needed to keep Hb>7g/dL, and plt>50k (given post-operative status)
Given that she quit smoking >15 years ago she does not qualify for lung cancer screening
DVT prophylaxis
Early nutrition
Early mobilization
Patient is being prepared for discharge home. No additional recommendations at this time. Director Of Restaurant Operations/Pulmonary service will now sign off. Thank you for allowing us to be involved in the care of this patient. Please reconsult if there are any
additional questions/concerns, or if patient's respiratory status deteriorates.
Total time spent today was 42 minutes for this encounter. Time includes reviewing laboratory test/imaging results, reviewing pertinent medical records, obtaining and reviewing medical history, performing an appropriate exam, ordering medications,
tests and procedures. Time also includes documentation of this encounter, coordinating patient care and communicating with other healthcare professionals. Total time does not include separately billed tests performed on this date of service.
[2024-12-10 10:28] VITALS: BP 141/67
--- NOTE | 2024-12-10 11:03 | PTCARENOTE ---
Patient AAO x3 BP via Rt Arterial 143/67 Patient have not require any pressors over night. Dr Laird, ok to remove Rt radial A/line.
RT Radial A/line removed at 11:03 Pressure applied until it was not bleed ; pressure dressing in place. patient transfer to chair. Require walker to balance . BP via left upper arm 141/67 MAP 90 while sitting in a chair. SR 68. SPO2 89%RA on 2L 100%
IS encouraged Lungs diminished no cough no SOB. Tolerating low cholesterol diet without difficulties
At this time pt OOB chair call cast within reach
--- NOTE | 2024-12-10 11:59 | W.PN.VS ---
Today's Communication / Plan
-
POD 1 L CEA
- SBP target 100-140
- ok for art line out
- ok for discharge home from vascular perspective with plavix and statin
- follow up in vascular surgery clinic in 2 weeks
Assessment/Plan
-
POD 1 L CEA
- SBP target 100-140
- ok for art line out
- ok for discharge home from vascular perspective with plavix and statin
- follow up in vascular surgery clinic in 2 weeks
Subjective Data
-
Date of Service: December 10, 2024
POD 1 L CEA
Has history of pre-existing headache from preop that persists, resolves with pain management, not worse than preop
No vision change, ongoing mild weakness right hand (dropped a cup), no slurred speech
BP under control with home meds
Objective Data
-
Vital Signs
Temp Pulse Resp BP Pulse Ox
97.6 F 60 6 93/44 91
12/10/24 11:44 12/10/24 08:00 12/10/24 08:00 12/09/24 20:00 12/10/24 08:00
Intake and Output
12/09/24 12/10/24 12/11/24
06:59 06:59 06:59
Intake Total 120 / 120 100 / 100 240 / 240
Balance 120 / 120 100 / 100 240 / 240
Intake:
Oral fluids 120 / 120 240 / 240
IV fluids (Total) 100 / 100
normosol 100 / 100
Other:
Number of approximated MODERATE 2
amounts of urine
How many times incontinent 2
MODERATE amount urine
How many times incontinent 1
SATURATED amount urine
Lab Results
12/10/24 04:00
12/10/24 04:00
Calcium 9.0 mg/dl (8.4-10.2) 12/10/24 04:00
Total Bilirubin 0.6 mg/dl (0.2-1.3) 12/08/24 11:00
AST 36 U/L (14-36) 12/08/24 11:00
ALT 29 U/L (0-35) 12/08/24 11:00
Alkaline Phosphatase 146 U/L (38-126) H 12/08/24 11:00
Total Protein 7.2 g/dl (6.3-8.2) 12/08/24 11:00
Albumin 4.3 g/dl (3.5-5.0) 12/08/24 11:00
Physical Exam
-
Smile equal
tongue midline
neck soft
incision CDI
strength grossly 5/5 in all 4
--- NOTE | 2024-12-10 14:05 | CON.NEURO ---
Neuro Assessment/Plan
Assessment
She is an 84 year old woman with ongoing left hand weakness, unchanged after Left CEA yesterday. suspect that she could have had a stroke prior to the procedure, which is likely tiny given the symptoms are mild, and no deficit on exam
Will obtain head CT
discussed getting MRI, won't change anything, so we decided to hold off
Plan
if head CT ok then she can be discharged home
Consultation
Order
Date of Consultation: 12/10/24
Requesting Provider: Syd Raman
Reason for Consult: right hand weakness
Subjective/Objective
Subjective Data
Date of Service: December 10, 2024
From H&P:
Patient is a 84-year-old female with past medical history significant for hyperlipidemia, hypertension, carotid stenosis and Hx CVA/TIA who presented to [facility] ED for evaluation of right hand discomfort last night and right leg weakness
over past 4 days. Patient states last night she had an episode in right hand, that she described as 'froze up,' and resolved spontaneously. She also states over past 4 days she has noticed some intermittent weakness in right leg and has had
intermittent headaches.
She was admitted, and had right CEA done yesterday. after the surgery, the patient still having mild right hand weakness. symptoms very mild and patient unsure if it is constant or intermittent
Objective Data
Vital Signs
Temp Pulse Resp BP Pulse Ox
36.4 C 60 6 93/44 91
12/10/24 11:44 12/10/24 08:00 12/10/24 08:00 12/09/24 20:00 12/10/24 08:00
Lab Results
12/10/24 04:00
12/10/24 04:00
PT 13.9 Sec (11.4-14.6) 12/10/24 04:00
INR 1.04 12/10/24 04:00
APTT 25.7 Sec (23.4-35.0) 12/10/24 04:00
Sodium 136 mmol/L (135-145) 12/10/24 04:00
Potassium 4.7 mmol/L (3.5-5.1) 12/10/24 04:00
BUN 20 mg/dl (7-17) H 12/10/24 04:00
Glucose 152 mg/dl (70-99) H 12/10/24 04:00
Calcium 9.0 mg/dl (8.4-10.2) 12/10/24 04:00
LDL Cholesterol, Calc 86 mg/dl 12/09/24 05:35
Patient Allergies
pseudoephedrine HCl [From Sudafed] Allergy (Verified 12/08/24 10:50)
Swelling
Physical Exam
-
AAOx3, speech clear, language intact
VFF, EOMI, face symmetric
full strength b/l UE/LE
sensation intact to touch
Medications
-
Active Medications
Generic Name Dose Route Start Last Admin
Trade Name Freq PRN Reason Stop Dose Admin
Acetaminophen 650 mg 12/08/24 18:32 12/09/24 19:48
Acetaminophen 325 Mg Tablet PO 01/05/25 18:31 650 mg
Q4HPRN PRN Administration
LÓPEZ, mild pain, or temp >100.4F
Aspirin 81 mg 12/10/24 08:00 12/10/24 07:42
Aspirin 81 Mg Chewable Tablet PO 01/07/25 07:59 81 mg
DAILY SURAJ Administration
Atorvastatin Calcium 80 mg 12/09/24 08:00 12/10/24 07:42
Atorvastatin (Lipitor) 80 Mg Tablet PO 01/06/25 07:59 80 mg
DAILY SURAJ Administration
Bisacodyl 10 mg 12/09/24 15:31
Bisacodyl 10 Mg Rectal Suppository RECTAL 01/06/25 15:30
DAILYPRN PRN
constipation
Cholecalciferol 25 mcg 12/09/24 08:00 12/10/24 07:42
Cholecalciferol (Vitamin D3) 25 Mcg Tablet (1,000 Units) PO 01/06/25 07:59 25 mcg
DAILY SURAJ Administration
Clopidogrel Bisulfate 75 mg 12/09/24 08:00 12/10/24 07:42
Clopidogrel 75 Mg Tablet PO 01/06/25 07:59 75 mg
DAILY SURAJ Administration
Famotidine 20 mg 12/09/24 08:00 12/10/24 07:42
Famotidine 20 Mg Tablet PO 01/06/25 07:59 20 mg
DAILY SURAJ Administration
Fentanyl Citrate 50 mcg 12/09/24 16:32
Fentanyl (50 Mcg/Ml) 100 Mcg/2 Ml Ampul IV 12/10/24 16:32
PACU-Q5MPRN PRN
severe pain
Fentanyl Citrate 25 mcg 12/09/24 16:32 12/09/24 16:50
Fentanyl (50 Mcg/Ml) 100 Mcg/2 Ml Ampul IV 12/10/24 16:32 25 mcg
PACU-Q5MPRN PRN Administration
moderate pain
Sodium Chloride 1,000 mls @ 80 mls/hr 12/09/24 15:45 12/10/24 06:25
Nss IV 1,000 mls
.[id number] SURAJ Administration
Nicardipine/Sodium Chloride 40 mg in 200 mls @ 0 mls/hr 12/09/24 15:45
Cardene IV
PER PROTOCOL SURAJ
Protocol
Per Protocol
Norepinephrine Bitartrate 4 mg in 250 mls @ 0 mls/hr 12/09/24 16:15
Levophed IV
PER PROTOCOL SURAJ
Protocol
Per Protocol
Parenteral Electrolytes 1,000 mls @ 100 mls/hr 12/09/24 16:45
Normosol-R/Plasmalyte-A IV 12/10/24 16:32
PER PROTOCOL SURAJ
Meperidine HCl 12.5 mg 12/09/24 16:32
Meperidine 25 Mg/Ml Injection IV 12/10/24 16:32
PACU-Q5MPRN PRN
shivers
Morphine Sulfate 2 mg 12/09/24 15:31
Morphine 2 Mg/Ml Syringe IV 12/23/24 15:30
Q2HPRN PRN
severe pain
Multivitamins Therapeutic 1 tablet 12/09/24 08:00 12/10/24 07:42
Multivitamin Tablet PO 01/06/25 07:59 1 tablet
DAILY SURAJ Administration
Ondansetron HCl 4 mg 12/09/24 16:32
Ondansetron 4 Mg/2 Ml Vial IV 12/10/24 16:32
PACU-ONCEPRN PRN
nausea/vomiting
Oxycodone HCl 5 mg 12/09/24 15:31 12/10/24 07:42
Oxycodone 5 Mg Regular Release Tablet PO 12/23/24 15:30 5 mg
Q4HPRN PRN Administration
moderate pain
Prochlorperazine Edisylate 5 mg 12/09/24 16:32
Prochlorperazine 10 Mg/2 Ml Vial IV 12/10/24 16:32
PACU-ONCEPRN PRN
nausea/vomiting
Sodium Chloride 0 flush 12/08/24 19:00
Sodium Chloride 0.9% (Flush) Syringe IV 01/05/25 18:59
PER PROTOCOL SURAJ
Home Medications
�Medication �Instructions �Recorded
atorvastatin 80 mg tablet 80 mg PO DAILY High Cholesterol 11/18/24
cholecalciferol (vitamin D3) 25 25 mcg PO DAILY Supplement 11/18/24
mcg (1,000 unit) capsule (Vitamin
D3)
clopidogrel 75 mg tablet (Plavix) 75 mg PO DAILY Blood Clot 11/18/24
Prevention/Tx
famotidine 20 mg tablet (Pepcid) 20 mg PO DAILY Gastrointestinal 11/18/24
Issue
multivitamin 1 tab PO DAILY Supplement 11/18/24
--- NOTE | 2024-12-10 14:13 | W.DCSUMMARY ---
Discharge Summary
Discharge Data
Date of Admission: 12/08/24
Date of Discharge: 12/10/24
-
Pending Results: No
Hospital Course
84-year-old female with past medical history significant for hyperlipidemia, hypertension, carotid stenosis and Hx CVA/TIA
Presented with right sided upper and lower extremity weakness heaviness. Known to outpatient vascular surgery recommended to present to the hospital. They had recommended to obtain a stat CT angio of the head and neck which demonstrated bilateral
carotid artery stenosis worse on the left than the right. Was taken to the OR for left carotid endarterectomy on 12/09/2024. Then upgraded to ICU for 24-hour neurovascular checks which went well. Vascular surgery recommended to discharge with
Plavix and statin. Continue aspirin. As of right upper extremity heaviness continued had neurology evaluate recommended repeat CT head however has been optimized and with be cleared for discharge once completed. Will require outpatient vascular
surgery neurology follow-up.
CTHead
IMPRESSION:
Small area of decreased attenuation again seen compatible with an old infarct in the posterior left parietal lobe.
No acute intracranial abnormality.
CTHead and Neck
IMPRESSION:
Short segment occlusion of the left carotid bulb, which appears unchanged compared to the recent CTA head and neck angiogram from 11/16/2024.
Stable 30% stenosis of the right carotid bulb.
No CTA evidence for high-grade stenosis or occlusion in the [place].
Seen and examined on the day of discharge.
No new complaints reported. Tolerated procedure well. Continues to still have some right arm heaviness.
Will have neurology follow-up. Neurology did recommended to obtain a CT head without contrast however this would not exchange mechanic. Continue DAPT and statin for now
Outpatient neurology follow-up
Also require outpatient vascular surgery follow-up continue DAPT and statin. Vascular surgery note states continue Plavix and statin. However I did message them via expressor software recommending to continue on what ever medications were ordered by
vascular surgery yesterday.
Blood pressure has been stable. When I evaluated was 140/90. Currently not on any blood pressure medications at home.
NAD
Scleral Anicteric
MMM
No JVD, left carotid artery incision line appears clean and well-approximated without any drainage/purulence
CTABL
RRR, S1/S2
Soft, NT, ND, BS+
Warm, Dry, 4/5 motor strength in right upper extremity
More than 30 minutes spent in discharge including
Final examination of the patient
Summarizing hospital stay
Instructions for continuing care to all relevant caregivers
Preparation of discharge records, prescriptions, and referral forms
Total time spent (in minutes): 33min
Discharge Plan
-
Patient Disposition: Home (Routine Discharge)
Discharge Diagnosis/Procedures: Carotid artery stenosis s/p left carotid endarterectomy
Diet: As tolerated
Activity: No strenuous activity
Driving Restrictions: Not until seen by your Dr
Bathing Restrictions: OK to Shower
Activity Restrictions/Additional Instructions:
Presented with right sided upper and lower extremity weakness heaviness. Known to outpatient vascular surgery recommended to present to the hospital. They had recommended to obtain a stat CT angio of the head and neck which demonstrated bilateral
carotid artery stenosis worse on the left than the right. Was taken to the OR for left carotid endarterectomy on 12/09/2024. Then upgraded to ICU for 24-hour neurovascular checks which went well. Vascular surgery recommended to discharge with
Plavix and statin. Continue aspirin. As of right upper extremity heaviness continued had neurology evaluate recommended repeat CT head however has been optimized and with be cleared for discharge once completed. Will require outpatient vascular
surgery neurology follow-up.
CTHead
IMPRESSION:
Small area of decreased attenuation again seen compatible with an old infarct in the posterior left parietal lobe.
No acute intracranial abnormality.
CTHead and Neck
IMPRESSION:
Short segment occlusion of the left carotid bulb, which appears unchanged compared to the recent CTA head and neck angiogram from 11/16/2024.
Stable 30% stenosis of the right carotid bulb.
No CTA evidence for high-grade stenosis or occlusion in the [place].
If you experience severe constant headache, weakness to an arm or leg, change in vision, trouble speaking or any stroke-like symptom, call 911 immediately
If you experience swelling, increased bruising, drainage from neck site, or fever, please call the office
Stand Alone Forms: DC Instr - Vascular OR
Referrals:
Tony Herring MD [Family Provider] -
Myriam Hastings PA-C [Specified Professional Personl] - 12/22/24 10:15 am (Vascular surgery office follow-up)
Miguel Grayson MD [Active] - in one to two weeks
Prescriptions:
New
aspirin 81 mg Tablet,Chewable
81 mg PO DAILY Qty: 30 0RF
Continued
multivitamin Tablet
1 tab PO DAILY
atorvastatin 80 mg Tablet
80 mg PO DAILY
clopidogrel [Plavix] 75 mg Tablet
75 mg PO DAILY
famotidine [Pepcid] 20 mg Tablet
20 mg PO DAILY
cholecalciferol (vitamin D3) [Vitamin D3] 25 mcg (1,000 unit) Capsule
25 mcg PO DAILY
Discharge Orders:
Discharge Patient (As Directed); Ordered 12/10/24
Ordered By: Syd Raman
Discharge Date and Time
Print Language: MONGOLIAN
[2024-12-10 15:00] VITALS: BP 125/53
--- NOTE | 2024-12-10 15:31 | CHAP ---
Sandra shared that it's been a difficult year - her 's first anniversary of is approaching. She keeps a positive attitude, though, and appreciates all the support she has received. She welcomed prayer. Emotional and spiritual
support provided.
--- NOTE | 2024-12-10 16:36 | PTCARENOTE ---
16:30 Patient discharge home. VS prior discharge : 125/63 via Left upper arm -Normal Sinus Rhythm 73-97.3(PO) -95%RA . Discharge instructions including medications, follow-up appointment, signs and symptoms to report provided to patient and her
daughter. Left and Right peripheral lines removed. RT radial line removed earlier today pressure dressing intact and dry. Transportation provided by patient's daughter. patient escorted to [facility] hospital lobby and assisted into care . All belongings
including cell phone and clothing man backed by patient
== END 2024-12-10 16:44 | disposition home or self-care (01) | DRG 38 ==
LOC: ICU 17:13
PROVIDERS: Emergency Medicine; Nurse Practitioner Acute Care; Nurse Practitioner Family; ADMITTING PHYSICIAN Hospitalist; CONSULT PHYSICIAN Internal Medicine Critical Care Medicine; CONSULT PHYSICIAN Psychiatry & Neurology Clinical Neurophysiology; CONSULT PHYSICIAN Surgery Vascular Surgery; EMERGENCY PHYSICIAN Student in an Organized Health Care Education/Training Program; FAMILY PHYSICIAN Internal Medicine
PROC: 03UJ0KZ Supplement Left Common Carotid Artery with Nonautologous Tissue Substitute, Open Approach (ICD-10-PCS; 2024-12-09)
PROC: 03CJ0ZZ Extirpation of Matter from Left Common Carotid Artery, Open Approach (ICD-10-PCS; 2024-12-09)
DX: I65.22 Occlusion and stenosis of left carotid artery (principal); N17.9 Acute kidney failure, unspecified; N18.2 Chronic kidney disease, stage 2 (mild); I12.9 Hypertensive chronic kidney disease with stage 1 through stage 4 chronic kidney disease, or unspecified chronic kidney disease; K21.9 Gastro-esophageal reflux disease without esophagitis; Z79.02 Long term (current) use of antithrombotics/antiplatelets; Z87.891 Personal history of nicotine dependence; Z86.73 Personal history of transient ischemic attack (TIA), and cerebral infarction without residual deficits; D13.91 Familial adenomatous polyposis; M19.90 Unspecified osteoarthritis, unspecified site; Z79.899 Other long term (current) drug therapy; Z86.16 Personal history of COVID-19
CPT/HCPCS: 88304; 88311; 35301; 70450; 70496; 70498; 80048; 80053; 80061; 81003; 81015; 83036; 84484; 85025; 85027; 85610; 85652; 85730; 86850; 86900; 86901; 87070; 92523; 93005; 95938; 95941; 95955; 99285; Q9967

== ENCOUNTER → 2024-12-26 14:05 | Outpatient (REF) | payer MEDICARE, OTHER, SELFPAY | LOC: RAD 14:05 | PROVIDERS: ATTENDING PHYSICIAN Physician Assistant; FAMILY PHYSICIAN Internal Medicine | DX: I65.22 Occlusion and stenosis of left carotid artery (principal) | CPT/HCPCS: 93880 ==

== ENCOUNTER → 2025-01-19 07:18 | Outpatient (REF) | payer MEDICARE, OTHER, SELFPAY ==
[2025-01-19 08:16] LABS: VerifyNow PRU 34 PRU (180-376)
[2025-01-19 08:25] LABS: VerifyNow Aspirin 587 ARU
== END ==
LOC: REG 07:18
PROVIDERS: ATTENDING PHYSICIAN Nurse Practitioner Adult Health; FAMILY PHYSICIAN Internal Medicine; OTHER PHYSICIAN Internal Medicine Cardiovascular Disease
DX: R53.1 Weakness (principal); I63.9 Cerebral infarction, unspecified
CPT/HCPCS: 36415; 85576

== ENCOUNTER → 2025-02-01 09:03 | Outpatient (REF) | payer MEDICARE, OTHER, SELFPAY | LOC: PAVMRI 09:03 | PROVIDERS: ATTENDING PHYSICIAN Nurse Practitioner Adult Health; FAMILY PHYSICIAN Internal Medicine; OTHER PHYSICIAN Internal Medicine Cardiovascular Disease; REFERRING PHYSICIAN Surgery Vascular Surgery | DX: I63.9 Cerebral infarction, unspecified (principal); I65.22 Occlusion and stenosis of left carotid artery; R53.1 Weakness | CPT/HCPCS: 70551 ==

== ENCOUNTER → 2025-07-14 12:47 | Outpatient (REF) | payer MEDICARE, OTHER, SELFPAY | LOC: RAD 12:47 | PROVIDERS: ATTENDING PHYSICIAN Surgery Vascular Surgery; FAMILY PHYSICIAN Internal Medicine | DX: I65.22 Occlusion and stenosis of left carotid artery (principal) | CPT/HCPCS: 93880 ==